=== PATIENT | female | born 1935 | race Caucasian/White ===

== ENCOUNTER 2017-05-11 17:42 | Emergency (ER) | payer OTHER ==
[~2017-05-11] VITALS: Ht 154.9 cm; Wt 73.8 kg
[2017-05-11] MEDS ORDERED: ATORVASTATIN CA10 MG PO (18:16)
[2017-05-11] MEDS ORDERED: OMEPRAZOLE40 M1 PO (18:16)
[2017-05-11] MEDS ORDERED: SERTRALINE HCL100 MG PO (18:16)
[2017-05-11] MEDS ORDERED: FOLIC ACID (18:19)
[2017-05-11 19:51] VITALS: BP 155/75
== END 2017-05-11 19:54 | disposition home or self-care (01) ==
LOC: EME 17:42
DX: S80.212A Abrasion, left knee, initial encounter (principal); S80.211A Abrasion, right knee, initial encounter; S00.81XA Abrasion of other part of head, initial encounter; M79.642 Pain in left hand; W01.0XXA Fall on same level from slipping, tripping and stumbling without subsequent striking against object, initial encounter; K21.9 Gastro-esophageal reflux disease without esophagitis; E78.5 Hyperlipidemia, unspecified
CPT/HCPCS: 70450; 73130; 99281; 99284

== ENCOUNTER 2017-12-19 10:59 | Inpatient (IN) | payer OTHER ==
[~2017-12-19] VITALS: Ht 157.5 cm; Wt 75.8 kg
[~2017-12-19 10:59] MED LIST: ATORVASTATIN CA10 MG PO; FOLIC ACID; OMEPRAZOLE40 M1 PO; SERTRALINE HCL100 MG PO
[2017-12-19 12:01] LABS: BASOPHIL (%) 0.2 % (0-1); EOSINOPHIL (%) 0.1 % (0-5); IMMATURE GRANULOCYTE (%) 0.4 % (0.0-0.7); LYMPHOCYTE (%) 5.3 % (15-42); LYMPHOCYTE COUNT 0.7 K/uL (1.0-2.8); MCH 29.6 PG (29.0-34.0); MCHC 34.2 G/DL (30.0-36.0); MCV 86.6 FL (83-99); MONOCYTE (%) 6.4 % (3-12); MONOCYTE COUNT 0.9 K/uL (0-0.8); NEUTROPHIL (%) 87.6 % (45-76); NEUTROPHIL COUNT 11.8 K/uL (1.8-6.4); PLATELET COUNT 193 K/uL (156-360); RBC DIS.WIDTH-CV 13.6 % (11.8-14.6); RBC DIS.WIDTH-SD 42.7 % (39-53); RED BLOOD COUNT 4.39 M/uL (3.80-5.20); WHITE BLOOD COUNT 13.5 K/uL (4.1-10.2)
[2017-12-19 12:12] LABS: INTER. NORMALIZED RATIO 1.1
[2017-12-19 12:14] LABS: PTT 25.8 SEC (25-37)
[2017-12-19 12:22] LABS: ALBUMIN 4.1 g/dL (3.2-4.8)
[2017-12-19 12:23] LABS: CHLORIDE 107 mEq/L (99-109); MAGNESIUM 2.5 mg/dL (1.3-2.7); POTASSIUM 4.2 mEq/L (3.7-5.4); SODIUM 143 mEq/L (136-147)
[2017-12-19 12:25] LABS: GLUCOSE 124 mg/dL (70-99); TOTAL PROTEIN 6.7 g/dL (6.4-8.3)
[2017-12-19 12:27] LABS: TOTAL BILIRUBIN 1.6 mg/dL (0.0-1.0)
[2017-12-19 12:28] LABS: ALKALINE PHOSPHATASE 88 IU/L (3-129)
[2017-12-19 12:29] LABS: CREATININE 0.6 mg/dL (0.6-1.3); GFR ESTIMATE (CALCULATED) > 59 mL/min/
[2017-12-19 12:30] LABS: AST (GOT) 171 IU/L (2-34); UREA NITROGEN (BUN) 16 mg/dL (9-23)
[2017-12-19 12:32] LABS: ALT (GPT) 74 IU/L (3-49)
[2017-12-19 12:33] LABS: TROP-I INTERPRETATION NEGATIVE; TROPONIN-I < 0.01 ng/mL (0.0-0.30)
[2017-12-19 12:38] LABS: CK-MB 50.9 ng/mL (0.0-4.9)
[2017-12-19 12:43] LABS: CKMB RELATIVE INDEX 0.8 (0.0-3.9); TOTAL CK 6270 IU/L (1-294)
[2017-12-19 12:52] LABS: CREATINE KINASE 6270 IU/L (1-294)
[2017-12-19] MEDS ORDERED: POLY-VITAMIN1 EACH PO (14:13)
[2017-12-19 17:17] VITALS: BP 128/55
[2017-12-19 18:46] LABS: TROP-I INTERPRETATION NEGATIVE; TROPONIN-I 0.02 ng/mL (0.0-0.30)
[2017-12-19 23:30] VITALS: BP 149/67
[2017-12-20 00:47] LABS: TROP-I INTERPRETATION NEGATIVE; TROPONIN-I 0.03 ng/mL (0.0-0.30)
[2017-12-20 04:15] VITALS: BP 111/71
[2017-12-20 05:11] LABS: HEMATOCRIT 31.9 % (36.0-46.0); MCH 29.7 PG (29.0-34.0); MCHC 33.9 G/DL (30.0-36.0); MCV 87.6 FL (83-99); PLATELET COUNT 168 K/uL (156-360); RBC DIS.WIDTH-CV 13.9 % (11.8-14.6); RBC DIS.WIDTH-SD 44.4 % (39-53); RED BLOOD COUNT 3.64 M/uL (3.80-5.20); WHITE BLOOD COUNT 8.9 K/uL (4.1-10.2)
[2017-12-20 05:15] LABS: HEMOGLOBIN 10.8 G/DL (11.9-15.5)
[2017-12-20 05:50] LABS: ALBUMIN 3.2 G/DL (3.2-4.8); ALKALINE PHOSPHATASE 56 IU/L (3-129); ALT (GPT) 54 IU/L (3-49); AST (GOT) 94 IU/L (2-34); CHLORIDE 108 MEQ/L (99-109); CREATININE 0.4 MG/DL (0.6-1.3); GFR ESTIMATE (CALCULATED) > 59 mL/min/; GLUCOSE 116 mg/dL (70-99); POTASSIUM 3.5 MEQ/L (3.7-5.4); SODIUM 140 MEQ/L (136-147); TOTAL BILIRUBIN 0.9 MG/DL (0.0-1.0); TOTAL PROTEIN 5.1 G/DL (6.4-8.3); UREA NITROGEN (BUN) 14 mg/dL (9-23)
[2017-12-20 05:51] LABS: CREATINE KINASE 2508 IU/L (1-294)
[2017-12-20 07:57] VITALS: BP 126/59
[2017-12-20 12:00] VITALS: BP 136/64
[2017-12-20 16:47] VITALS: BP 137/63
[2017-12-20 19:16] VITALS: BP 143/62
[2017-12-20 23:59] VITALS: BP 145/64
[2017-12-21 03:33] VITALS: BP 156/67
[2017-12-21 03:44] LABS: APPEARANCE CLEAR ((CLEAR)); BILIRUBIN NEGATIVE; BLOOD NEGATIVE; COLOR STRAW ((YELLOW)); GLUCOSE (STRIP) NEGATIVE; KETONES NEGATIVE; LEUKOCYTES NEGATIVE; NITRITE NEGATIVE; PROTEIN (STRIP) NEGATIVE; SPECIFIC GRAVITY 1.006 (1.000-1.030); UCUL ADDED? NO; UROBILINOGEN 0.2 MG/DL (0.2-1.0)
[2017-12-21 06:23] LABS: CHLORIDE 110 MEQ/L (99-109); CREATININE 0.4 MG/DL (0.6-1.3); GFR ESTIMATE (CALCULATED) > 59 mL/min/; GLUCOSE 109 mg/dL (70-99); SODIUM 142 MEQ/L (136-147); UREA NITROGEN (BUN) 8 mg/dL (9-23)
[2017-12-21 06:36] LABS: CREATINE KINASE 1380 IU/L (1-294)
[2017-12-21 07:18] VITALS: BP 133/63
[2017-12-21 11:36] VITALS: BP 149/74
[2017-12-21 15:30] VITALS: BP 132/61
== END 2017-12-21 21:42 | disposition short-term general hospital (02) | DRG 558 ==
LOC: EME 10:59 → EDOF 14:03 → 3EAST 14:03 → ENRESERV 14:06 → 3EAST 15:44
PROVIDERS: Emergency Medicine; Internal Medicine
DX: M62.82 Rhabdomyolysis (principal); S72.452A Displaced supracondylar fracture without intracondylar extension of lower end of left femur, initial encounter for closed fracture; M21.00 Valgus deformity, not elsewhere classified, unspecified site; E86.0 Dehydration; M97.12XA Periprosthetic fracture around internal prosthetic left knee joint, initial encounter; E78.5 Hyperlipidemia, unspecified; K21.9 Gastro-esophageal reflux disease without esophagitis; K59.00 Constipation, unspecified; D72.829 Elevated white blood cell count, unspecified; W01.0XXA Fall on same level from slipping, tripping and stumbling without subsequent striking against object, initial encounter; Z82.49 Family history of ischemic heart disease and other diseases of the circulatory system; Z80.0 Family history of malignant neoplasm of digestive organs; Z79.899 Other long term (current) drug therapy
CPT/HCPCS: 71045; 72170; 73564; 80048; 80053; 81003; 82550; 82553; 83735; 84484; 85025; 85027; 85610; 85730; 93005; 99281; 99285; J1644; J7030; J7040

== ENCOUNTER 2017-12-29 13:23 | Inpatient (IN) | payer OTHER ==
[~2017-12-29] VITALS: Ht 157.5 cm; Wt 67.3 kg
[~2017-12-29 13:23] MED LIST changes: +POLY-VITAMIN1 EACH PO
[2017-12-29 16:10] VITALS: BP 130/59
[2017-12-29 23:08] VITALS: BP 134/61
[2017-12-30 04:36] VITALS: BP 128/61
[2017-12-30 06:35] LABS: ALKALINE PHOSPHATASE 114 IU/L (3-129); ALT (GPT) 32 IU/L (3-49); AST (GOT) 21 IU/L (2-34); CHLORIDE 110 MEQ/L (99-109); CREATININE 0.3 MG/DL (0.6-1.3); GFR ESTIMATE (CALCULATED) > 59 mL/min/; GLUCOSE 112 mg/dL (70-99); POTASSIUM 3.8 MEQ/L (3.7-5.4); SODIUM 144 MEQ/L (136-147); TOTAL BILIRUBIN 0.5 MG/DL (0.0-1.0); TOTAL PROTEIN 5.2 G/DL (6.4-8.3); UREA NITROGEN (BUN) 7 mg/dL (9-23)
[2017-12-30 06:39] LABS: HEMATOCRIT 25.3 % (36.0-46.0); MCH 28.6 PG (29.0-34.0); MCHC 32.8 G/DL (30.0-36.0); MCV 87.2 FL (83-99); RBC DIS.WIDTH-CV 13.3 % (11.8-14.6); RBC DIS.WIDTH-SD 42.3 % (39-53); WHITE BLOOD COUNT 7.2 K/uL (4.1-10.2)
[2017-12-30 06:42] LABS: HEMOGLOBIN 8.3 G/DL (11.9-15.5); PLATELET COUNT 331 K/uL (156-360)
[2017-12-30] MEDS ORDERED: XARELTO10 MG PO (10:33)
[2017-12-30 14:29] VITALS: BP 128/69
[2017-12-31 05:31] VITALS: BP 134/64
[2017-12-31 15:16] VITALS: BP 131/62
[2018-01-01 05:27] VITALS: BP 170/76
[2018-01-01 07:07] LABS: BASOPHIL (%) 0.6 % (0-1); EOSINOPHIL (%) 1.5 % (0-5); EOSINOPHIL COUNT 0.1 K/uL (0-0.3); HEMOGLOBIN 8.8 G/DL (11.9-15.5); IMMATURE GRANULOCYTE (%) 0.7 % (0.0-0.7); LYMPHOCYTE (%) 14.7 % (15-42); LYMPHOCYTE COUNT 1.1 K/uL (1.0-2.8); MCH 28.8 PG (29.0-34.0); MCHC 32.6 G/DL (30.0-36.0); MCV 88.2 FL (83-99); MONOCYTE (%) 5.7 % (3-12); MONOCYTE COUNT 0.4 K/uL (0-0.8); NEUTROPHIL (%) 76.8 % (45-76); NEUTROPHIL COUNT 5.6 K/uL (1.8-6.4); RBC DIS.WIDTH-CV 13.7 % (11.8-14.6); RBC DIS.WIDTH-SD 43.4 % (39-53); RED BLOOD COUNT 3.06 M/uL (3.80-5.20); WHITE BLOOD COUNT 7.2 K/uL (4.1-10.2)
[2018-01-01 07:35] LABS: CHLORIDE 107 MEQ/L (99-109); CREATININE 0.4 MG/DL (0.6-1.3); GFR ESTIMATE (CALCULATED) > 59 mL/min/; GLUCOSE 105 mg/dL (70-99); POTASSIUM 3.5 MEQ/L (3.7-5.4); SODIUM 141 MEQ/L (136-147); UREA NITROGEN (BUN) 8 mg/dL (9-23)
[2018-01-01 07:37] LABS: PLATELET COUNT 467 K/uL (156-360)
[2018-01-01 15:56] VITALS: BP 132/64
[2018-01-02 05:57] VITALS: BP 152/74
[2018-01-02 16:49] VITALS: BP 113/55
[2018-01-03 05:53] VITALS: BP 133/68
[2018-01-03 16:31] VITALS: BP 144/62
[2018-01-04 05:53] VITALS: BP 118/61
[2018-01-04 15:22] VITALS: BP 115/58
[2018-01-05 04:57] VITALS: BP 112/57
[2018-01-05 05:35] LABS: BASOPHIL (%) 0.4 % (0-1); EOSINOPHIL (%) 1.8 % (0-5); EOSINOPHIL COUNT 0.1 K/uL (0-0.3); HEMATOCRIT 28.6 % (36.0-46.0); HEMOGLOBIN 9.1 G/DL (11.9-15.5); IMMATURE GRANULOCYTE (%) 0.3 % (0.0-0.7); LYMPHOCYTE (%) 16.8 % (15-42); LYMPHOCYTE COUNT 1.2 K/uL (1.0-2.8); MCHC 31.8 G/DL (30.0-36.0); MONOCYTE (%) 7.5 % (3-12); MONOCYTE COUNT 0.5 K/uL (0-0.8); NEUTROPHIL (%) 73.2 % (45-76); PLATELET COUNT 454 K/uL (156-360); RBC DIS.WIDTH-CV 14.1 % (11.8-14.6); RBC DIS.WIDTH-SD 43.8 % (39-53); RED BLOOD COUNT 3.25 M/uL (3.80-5.20); WHITE BLOOD COUNT 6.8 K/uL (4.1-10.2)
[2018-01-05 06:23] LABS: CHLORIDE 109 MEQ/L (99-109); CREATININE 0.4 MG/DL (0.6-1.3); GFR ESTIMATE (CALCULATED) > 59 mL/min/; GLUCOSE 106 mg/dL (70-99); POTASSIUM 4.2 MEQ/L (3.7-5.4); SODIUM 141 MEQ/L (136-147); UREA NITROGEN (BUN) 9 mg/dL (9-23)
[2018-01-05 15:18] VITALS: BP 121/56
[2018-01-06 05:12] VITALS: BP 131/61
[2018-01-06 15:43] VITALS: BP 112/57
[2018-01-07 06:30] VITALS: BP 115/55
[2018-01-07 15:33] VITALS: BP 122/54
[2018-01-08 05:41] VITALS: BP 139/66
[2018-01-08 15:06] VITALS: BP 110/59
[2018-01-09 05:27] VITALS: BP 107/59
[2018-01-09 15:24] VITALS: BP 111/59
[2018-01-10 05:22] VITALS: BP 106/58
[2018-01-10 15:08] VITALS: BP 122/58
[2018-01-11 06:16] VITALS: BP 132/60
[2018-01-11 12:09] LABS: BASOPHIL (%) 0.3 % (0-1); EOSINOPHIL (%) 1.5 % (0-5); EOSINOPHIL COUNT 0.1 K/uL (0-0.3); HEMATOCRIT 30.6 % (36.0-46.0); HEMOGLOBIN 9.8 G/DL (11.9-15.5); IMMATURE GRANULOCYTE (%) 0.3 % (0.0-0.7); LYMPHOCYTE COUNT 1.1 K/uL (1.0-2.8); MCH 28.4 PG (29.0-34.0); MCV 88.7 FL (83-99); MONOCYTE (%) 7.2 % (3-12); MONOCYTE COUNT 0.5 K/uL (0-0.8); NEUTROPHIL (%) 73.7 % (45-76); NEUTROPHIL COUNT 4.9 K/uL (1.8-6.4); PLATELET COUNT 335 K/uL (156-360); RBC DIS.WIDTH-CV 14.8 % (11.8-14.6); RBC DIS.WIDTH-SD 46.8 % (39-53); RED BLOOD COUNT 3.45 M/uL (3.80-5.20); WHITE BLOOD COUNT 6.7 K/uL (4.1-10.2)
[2018-01-11 12:47] LABS: ALBUMIN 3.5 G/DL (3.2-4.8); ALKALINE PHOSPHATASE 237 IU/L (3-129); ALT (GPT) 10 IU/L (3-49); AST (GOT) 12 IU/L (2-34); CHLORIDE 106 MEQ/L (99-109); CREATININE 0.5 MG/DL (0.6-1.3); GFR ESTIMATE (CALCULATED) > 59 mL/min/; GLUCOSE 81 mg/dL (70-99); POTASSIUM 4.2 MEQ/L (3.7-5.4); SODIUM 142 MEQ/L (136-147); TOTAL BILIRUBIN 0.4 MG/DL (0.0-1.0); TOTAL PROTEIN 6.3 G/DL (6.4-8.3); UREA NITROGEN (BUN) 12 mg/dL (9-23)
[2018-01-11 15:21] LABS: BASOPHIL (%) 0.4 % (0-1); EOSINOPHIL (%) 1.3 % (0-5); EOSINOPHIL COUNT 0.1 K/uL (0-0.3); HEMOGLOBIN 9.9 G/DL (11.9-15.5); IMMATURE GRANULOCYTE (%) 0.3 % (0.0-0.7); LYMPHOCYTE (%) 19.1 % (15-42); LYMPHOCYTE COUNT 1.4 K/uL (1.0-2.8); MCH 28.2 PG (29.0-34.0); MCHC 31.9 G/DL (30.0-36.0); MCV 88.3 FL (83-99); MONOCYTE (%) 7.9 % (3-12); MONOCYTE COUNT 0.6 K/uL (0-0.8); NEUTROPHIL COUNT 5.3 K/uL (1.8-6.4); PLATELET COUNT 349 K/uL (156-360); RBC DIS.WIDTH-CV 14.9 % (11.8-14.6); RBC DIS.WIDTH-SD 47.2 % (39-53); RED BLOOD COUNT 3.51 M/uL (3.80-5.20); WHITE BLOOD COUNT 7.5 K/uL (4.1-10.2)
[2018-01-11 16:17] VITALS: BP 128/70
[2018-01-12 05:57] VITALS: BP 126/66
[2018-01-12] MEDS ORDERED: TRAMADOL HCL50 MG PO (10:40)
[2018-01-12] MEDS ORDERED: MAG-AL PLUS SUS30 ML PO (10:40)
[2018-01-12] MEDS ORDERED: FERROUS SULFAT325 MG PO (10:40)
[2018-01-12] MEDS ORDERED: TYLENOL REGULA325 MG PO (10:40)
[2018-01-12] MEDS ORDERED: XARELTO10 MG PO (11:12)
== END 2018-01-12 14:05 | disposition home health service (06) | DRG 560 ==
LOC: 3WEST 13:23 → ENPENDDIS 01-12 → 3WEST 01-12 14:05
PROVIDERS: Family Medicine; Physical Medicine & Rehabilitation Pain Medicine; Psychiatry & Neurology Neurology
PROC: F07M0ZZ Range of Motion and Joint Mobility Treatment of Musculoskeletal System - Whole Body (ICD-10-PCS; principal; 2017-12-29)
DX: M97.12XD Periprosthetic fracture around internal prosthetic left knee joint, subsequent encounter (principal); G89.18 Other acute postprocedural pain; D62 Acute posthemorrhagic anemia; E87.6 Hypokalemia; I49.3 Ventricular premature depolarization; R00.0 Tachycardia, unspecified; K21.9 Gastro-esophageal reflux disease without esophagitis; F32.9 Major depressive disorder, single episode, unspecified; F41.9 Anxiety disorder, unspecified; E78.5 Hyperlipidemia, unspecified; Z96.653 Presence of artificial knee joint, bilateral; Z88.1 Allergy status to other antibiotic agents
CPT/HCPCS: 70450; 80048; 80053; 82948; 85025; 85025 91; 85027; 93005; 97110 GO; 97530 GP